=== PATIENT | female | born 1990 | race Caucasian/White ===

== ENCOUNTER 2020-11-17 10:35 | Emergency (ER) | payer BC, SELFPAY ==
[2020-11-17 10:48] VITALS: BP 121/79; PULSE 86; RESP 18; TEMP 36.5; O2SAT 99
--- NOTE | 2020-11-17 18:50 | ED.GENADULT ---
HPI - General Adult General Chief complaint: Upper Respiratory Infection Stated complaint: Sinus infection Source: patient Mode of arrival: ambulatory Limitations: no limitations History of Present Illness HPI narrative: Pleasant 30 y/o female. PMHx negative. Presents to Express care today with acute complaints of sinus congestion, facial and nasal pressure, as well as nasal discharge for the past 1 week. She reports a frequent history of sinus issues . No fever, chills. No RAY, sore throat, otalgia. No cough, chest congestion. Pt reports sub-therapeutic relief with OTC remedies. She expresses no Covid 19 concerns or ill contacts, telling me this is usually what happens with her sinuses . Pt is w/o additional acute complaints of illness upon exam. Related Data Home Medications Medication Instructions Recorded Confirmed norethindrone-e.estradiol-iron 1 tablet PO DAILY 11/17/20 11/17/20 [[facility]] Allergies Allergy/AdvReac Type Severity Reaction Status Date / Time No Known Allergies Allergy Verified 11/17/20 10:55 Review of Systems Review of Systems: CONSTITUTIONAL: Denies fever, chills, sweats. EYES: Denies visual changes, redness, discharge. ENT: Nasal pressure and congestion. No sore throat, otalgia. CARDIOVASCULAR: Denies chest pain, palpitations, edema. RESPIRATORY: Denies dyspnea, wheezing, cough GASTROINTESTINAL: Denies abdominal pain, nausea, vomiting, diarrhea. GENITOURINARY: Denies dysuria, hematuria, abnormal discharge SKIN: Denies rash or itching. MUSCULOSKELETAL: Denies acute back pain, joint pain, or myalgia. NEUROLOGIC: Denies numbness, or focal weakness. PSYCHIATRIC: Denies anxiety or depression. All systems reviewed & are unremarkable except as noted in HPI and below PMFSH Social History Social History Gender identity (if verbalized by the patient): Female Exam Narrative: GENERAL: This is a well-nourished, well-developed adult, in no apparent distress. HEAD: normocephalic, atraumatic. EYES: PERRL. Sclera clear/white. EARS: External ears normal, auditory canals clear and without drainage, TMs normal. NOSE: External nose normal. Positive purulent nasal discharge bilateral nares. No obstruction. Maxillary facial sinus pressure, reproducible. THROAT: Mucous membranes moist, posterior pharynx clear. No exudates. NECK: Neck supple, non-tender without lymphadenopathy, masses or thyromegaly. CARDIOVASCULAR: Regular rate and rhythm without murmurs, gallops, or rubs. RESPIRATORY: Clear to auscultation. Breath sounds equal bilaterally. No wheezes, rales, or rhonchi. GASTROINTESTINAL: Abdomen soft, non-tender, nondistended. Bowel sounds are active. No guarding. SKIN: warm, intact with no suspicious lesions or rash, good texture and turgor. NEURO: No focal neurologic deficits. EXTREMITIES: Negative. Course Course Emergency Course: -30 y/o female. PMHx negative. -Notes history of 'frequent sinus infections' and reports similar issues. -No concern for additional viral illness. -Physical exam reveals purulent nasal discharge & conchae/maxillary facial pressure. Suspect Acute Sinusitis. Vital Signs Vital signs: Vital Signs Temperature 36.5 C 11/17/20 10:48 Pulse Rate 86 11/17/20 10:48 Respiratory Rate 18 11/17/20 10:48 Blood Pressure 121/79 11/17/20 10:48 Pulse Oximetry 99 11/17/20 10:48 Temperature 36.5 C 11/17/20 10:48 Pulse Rate 86 11/17/20 10:48 Respiratory Rate 18 11/17/20 10:48 Blood Pressure 121/79 11/17/20 10:48 Pulse Oximetry 99 11/17/20 10:48 Medical Decision Making MDM Narrative Medical decision making narrative: -Start Azithromycin & steroid as directed. -Resume all OTC remedies prn for additional symptomatic relief. -PCP F/U 1 week is advised. -ER with emergent health status changes. Pt agrees. Differential Diagnosis Differential Diagnosis: Differential Di
== END 2020-11-17 11:00 | disposition home or self-care (01) ==
PROVIDERS: Emergency Provider Nurse Practitioner Adult Health
DX: J01.10 Acute frontal sinusitis, unspecified (principal)
CPT/HCPCS: 99203; G0463